=== PATIENT | female | born 1955 | race Native Hawaiian/Other Pacific Islander ===

== ENCOUNTER 2021-12-06 22:01 | Inpatient (IN) | payer SELFPAY ==
[~2021-12-06] VITALS: Ht 163 cm; Wt 112.1 kg
[2021-12-06] MEDS ORDERED: KETOROLAC 30 MG/ML VIAL IVP ONE (22:45)
[2021-12-06 23:31] LABS: BASOPHILS # (AUTO) 0.1 10^3/uL (0.0-0.1); BASOPHILS % (AUTO) 1 % (0-10); EOSINOPHILS # (AUTO) 0.4 10^3/uL (0.0-0.3); EOSINOPHILS % (AUTO) 4 % (0-10); HEMATOCRIT 44 % (35-52); HEMOGLOBIN 14.9 g/dL (11.5-16.0); LYMPHOCYTES # (AUTO) 3.1 10^3/uL (1.0-4.0); LYMPHOCYTES % (AUTO) 27 % (12-44); MEAN CORPUSCULAR HEMOGLOBIN 32 pg (25-34); MEAN CORPUSCULAR HGB CONC 34 g/dL (32-36); MEAN CORPUSCULAR VOLUME 95 fL (80-99); MEAN PLATELET VOLUME 9.7 fL (9.0-12.2); MONOCYTES # (AUTO) 0.5 10^3/uL (0.0-1.0); MONOCYTES % (AUTO) 4 % (0-12); NEUTROPHILS # (AUTO) 7.2 10^3/uL (1.8-7.8); NEUTROPHILS % (AUTO) 64 % (42-75); PLATELET COUNT 303 10^3/uL (130-400); WHITE BLOOD COUNT 11.2 10^3/uL (4.3-11.0)
[2021-12-06 23:48] LABS: ALBUMIN 3.5 GM/DL (3.2-4.5)
[2021-12-06 23:49] LABS: POTASSIUM 4.5 MMOL/L (3.6-5.0)
[2021-12-06 23:50] LABS: CALCIUM 9.3 MG/DL (8.5-10.1)
[2021-12-06 23:51] LABS: TOTAL PROTEIN 7.9 GM/DL (6.4-8.2)
[2021-12-06 23:52] LABS: BILIRUBIN,URINE NEGATIVE (NEGATIVE); CLARITY,URINE CLOUDY; COLOR,URINE YELLOW; GLUCOSE, URINE (UA) 1+ (NEGATIVE); KETONES,URINE NEGATIVE (NEGATIVE); LEUKOCYTE ESTERASE ,URINE TRACE (NEGATIVE); NITRITE,URINE NEGATIVE (NEGATIVE); PROTEIN,URINE 2+ (NEGATIVE)
[2021-12-06 23:53] LABS: BILIRUBIN,TOTAL 0.5 MG/DL (0.1-1.0)
[2021-12-06 23:55] LABS: CREATININE SERUM 0.86 MG/DL (0.60-1.30)
[2021-12-06 23:58] LABS: URIC ACID 6.7 MG/DL (2.6-7.2)
[2021-12-07 00:05] LABS: BACTERIA,URINE LARGE /HPF; WBC,URINE 0-2 /HPF
[2021-12-07] MEDS ORDERED: cefTRIAXone 1 GM PRE-MIX 50 ML IV STA (00:14)
[2021-12-07] MEDS ORDERED: HYDROcodone/APAP 5 MG/325 MG (LORTAB) TAB PO ONE (02:45)
--- NOTE | 2021-12-07 02:57 | ED General ---
General Chief Complaint: General Problems/Pain Stated Complaint: R SIDE WEAKNESS Nursing Triage Note: TO ED VIA [facility]. PT DOES NOT SPEAK [place]ET[place], FROM [facility]. DAUGHTER IN LAW WITH PT, BUT HER TRANSLATION IS VERY POOR. USE OF PERSONAL INJURY LEGAL ASSISTANT VIDEO CALL AND STILL VERY POOR TRANSLATION. PT DID CONVEY SHE HAS RIGHT SIDED PAIN FROM ARM TO DOWN RIGHT LEG "SINCE SHE CAME TO THE [facility]". DENIES HEALTH PROBLEMS AND RX MEDICATIONS. Source of Information: Patient, Family, Assembler Tester Exam Limitations: Language Barrier History of Present Illness Date Seen by Provider: Dec 06, 2021 Time Seen by Provider: 22:08 Initial Comments This is 66-year-old Iranian woman presents to the emergency room via EMS with primary complaints of pain on the right side including her right shoulder and right knee. History is obtained with the assistance of her oskhzdlr-xr-ajs and the language line paraprofessional interpreter. Patient has been primarily bedbound since before arriving to [facility] in February 2021. She does not walk and does not stand independently. More recently however she has not even been able to sit up because of pain in her right knee. Despite being in the [facility] for over 9 months, she has not yet established with a primary care provider. The status of her Medicare and Social Security number is showed at this time. Patient also complains of some lower back pain. She does not take any prescription medications. She denies any significant health problems other than joint disease. Allergies and Home Medications Allergies Coded Allergies: No Known Drug Allergies (Unverified , 12/06/21) Patient Home Medication List Home Medication List Reviewed: Yes Review of Systems Review of Systems Constitutional: no symptoms reported EENTM: no symptoms reported Respiratory: no symptoms reported Cardiovascular: no symptoms reported Gastrointestinal: no symptoms reported Genitourinary: see HPI : No Musculoskeletal: see HPI Skin: no symptoms reported Psychiatric/Neurological: No Symptoms Reported Hematologic/Lymphatic: No Symptoms Reported Immunological/Allergic: no symptoms reported Past Mtnbmgb-Kwqnlm-Lrbrfg Hx Patient Social History Tobacco Use?: No Smoking Status: Former Smoker Use of E-Cig and/or Vaping dev: No Substance use?: No Alcohol Use?: No Past Medical History Surgeries: No Respiratory: No Cardiac: No Neurological: No : No Reproductive Disorders: No Genitourinary: No Gastrointestinal: No Musculoskeletal: Yes (Degenerative joint disease, especially right knee and shoulder) HEENT: No Cancer: No Psychosocial: No Physical Exam Vital Signs Vital Signs - First Documented 12/06/21 22:01 Temp 36.1 Pulse 93 Resp 18 B/P (MAP) 127/102 (110) Pulse Ox 96 O2 Delivery Room Air Capillary Refill : Less Than 3 Seconds Height, Weight, BMI Height: '" Weight: lbs. oz. kg; BMI Method: General Appearance: WD/WN, Mild Distress, Obese HEENT: PERRL/EOMI, Normal ENT Inspection Neck: Normal Inspection Respiratory: Lungs Clear, Normal Breath Sounds, No Accessory Muscle Use Cardiovascular: Regular Rate, Rhythm, No Edema, No Murmur Gastrointestinal: Normal Bowel Sounds, Non Tender, Soft Extremity: Other (Tenderness of the right knee and right shoulder. Pain with attempts at range of motion. Range of motion severely restricted by stiff joint in the right knee) Neurologic/Psychiatric: Alert, Oriented x3, No Motor/Sensory Deficits, Normal Mood/Affect, drawer in stitch bonding machine II-XII Norm as Tested Skin: Normal Color, Warm/Dry Progress/Results/Core Measures Suspected Sepsis SIRS Temperature: Pulse: 93 Respiratory Rate: 93 Laboratory Tests 12/06/21 23:25: White Blood Count 11.2H Blood Pressure 127 /102 Mean: 110 Laboratory Tests 12/06/21 23:25: Creatinine 0.86, Platelet Count 303, Total Bilirubin 0.5 Results/Orders Lab Results Laboratory Tests Test 12/06/21 23:25 12/06/21 23:45 Range/Units White Blood Count 11.2 H 4.3-11.0 10^3/uL Red Blood Count 4.61 3.80-5.11 10^6/uL Hemoglobin 14.9 11.5-16.0 g/dL Hematocrit 44 35-52 % Mean Corpuscular Volume 95 80-99 fL Mean Corpuscular Hemoglobin 32 25-34 pg Mean Corpuscular Hemoglobin Concent 34 32-36 g/dL Red Cell Distribution Width 11.2 10.0-14.5 % Platelet Count 303 130-400 10^3/uL Mean Platelet Volume 9.7 9.0-12.2 fL Immature Granulocyte % (Auto) 0 % Neutrophils (%) (Auto) 64 42-75 % Lymphocytes (%) (Auto) 27 12-44 % Monocytes (%) (Auto) 4 0-12 % Eosinophils (%) (Auto) 4 0-10 % Basophils (%) (Auto) 1 0-10 % Neutrophils # (Auto) 7.2 1.8-7.8 10^3/uL Lymphocytes # (Auto) 3.1 1.0-4.0 10^3/uL Monocytes # (Auto) 0.5 0.0-1.0 10^3/uL Eosinophils # (Auto) 0.4 H 0.0-0.3 10^3/uL Basophils # (Auto) 0.1 0.0-0.1 10^3/uL Immature Granulocyte # (Auto) 0.0 0.0-0.1 10^3/uL Sodium Level 134 L 135-145 MMOL/L Potassium Level 4.5 3.6-5.0 MMOL/L Chloride Level 97 L 98-107 MMOL/L Carbon Dioxide Level 26 21-32 MMOL/L Anion Gap 11 5-14 MMOL/L Blood Urea Nitrogen 26 H 7-18 MG/DL Creatinine 0.86 0.60-1.30 MG/DL Estimat Glomerular Filtration Rate 74 BUN/Creatinine Ratio 30 Glucose Level 299 H 70-105 MG/DL Uric Acid 6.7 2.6-7.2 MG/DL Calcium Level 9.3 8.5-10.1 MG/DL Corrected Calcium 9.7 8.5-10.1 MG/DL Total Bilirubin 0.5 0.1-1.0 MG/DL Aspartate Amino Transf (AST/SGOT) 12 5-34 U/L Alanine Aminotransferase (ALT/SGPT) 8 0-55 U/L Alkaline Phosphatase 76 40-136 U/L C-Reactive Protein High Sensitivity 0.70 H 0.00-0.50 MG/DL Total Protein 7.9 6.4-8.2 GM/DL Albumin 3.5 3.2-4.5 GM/DL Lipase 15 8-78 U/L Urine Color YELLOW Urine Clarity CLOUDY Urine pH 6.0 5-9 Urine Specific [place] >=1.030 1.016-1.022 Urine Protein 2+ H NEGATIVE Urine Glucose (UA) 1+ H NEGATIVE Urine Ketones NEGATIVE NEGATIVE Urine Nitrite NEGATIVE NEGATIVE Urine Bilirubin NEGATIVE NEGATIVE Urine Urobilinogen 1.0 < = 1.0 MG/DL Urine Leukocyte Esterase TRACE H NEGATIVE Urine RBC (Auto) NEGATIVE NEGATIVE Urine RBC NONE /HPF Urine WBC 0-2 /HPF Urine Squamous Epithelial Cells 2-5 /HPF Urine Crystals NONE /LPF Urine Bacteria LARGE H /HPF Urine Casts NONE /LPF Urine Mucus NEGATIVE /LPF Urine Culture Indicated YES My Orders Orders - JESSICA CID MD Ed Iv/Invasive Line Start (12/06/21 22:08) Cbc With Automated Diff (12/06/21 22:08) Comprehensive Metabolic Panel (12/06/21 22:08) Hs C Reactive Protein (12/06/21 22:08) Lipase (12/06/21 22:08) Ua Culture If Indicated (12/06/21 22:08) Uric Acid (12/06/21 22:41) Ketorolac Injection (Toradol Injection) (12/06/21 22:45) Straight Cath For Spec.-Adult (12/06/21 23:46) Urine Culture (12/06/21 23:45) Ceftriaxone 1 Gm Pre-Mix (Rocephin 1 Gm (12/07/21 00:14) Knee, Right, 3 Views (12/07/21 01:26) Shoulder, Right, 2 Views (12/07/21 01:37) Hydrocodone/Apap 5/325 Tablet (Lortab 5 (12/07/21 02:45) Hemoglobin A1c (12/07/21 02:44) Medications Given in ED Current Medications Medications Dose Ordered Sig/Silvia Route Start Time Stop Time Status Last Admin Dose Admin Acetaminophen/ Hydrocodone Bitart 1 ea ONCE ONCE PO 12/07/21 02:45 12/07/21 02:46 DC 12/07/21 03:28 1 EA Ketorolac Tromethamine 15 mg ONCE ONCE IVP 12/06/21 22:45 12/06/21 22:46 DC 12/06/21 23:26 15 MG Vital Signs/I&O 12/06/21 12/06/21 22:01 22:01 Temp 36.1 Pulse 93 Resp 18 B/P (MAP) 127/102 (110) Pulse Ox 96 O2 Delivery Room Air Capillary Refill : Less Than 3 Seconds Blood Pressure Mean: 110 Progress Note : Time: 02:52 Progress Note Patient's combination of medical problems, chronic and worsening debility, and social circumstances make continuing her care purely as an outpatient impra ctical and unsafe. Patient is no longer able to sit for a significant length of time and therefore is not going to be able to transport to and from doctor's appointments. She also has an unknown Medicare and Social Security status. She is from the [facility] and is 66, and she should therefore have Medicare. However, the family is unaware of her status or her Social Security number. Receiving care will be more difficult until this information is known. Additionally, EMS felt her home living situation was not appropriate for her level of need. For example, they were under the impression there was one mattress in the home where 8 people are living. Patient was treated with Toradol which did provide her some temporary rest. Once she woke she expe rienced rebound pain. Hydrocodone is being provided. The language barrier is significant. We were able to perform the initial assessment with a Iranian paraprofessional interpreter. However, while reviewing the plan, a Iranian paraprofessional interpreter was not available after multiple attempts. Patient's kssucikm-zp-axj acted as paraprofessional interpreter. Given the lack of biomedical engineering technician, we will presume full CODE STATUS until this can be otherwise discussed with an paraprofessional interpreter. Patient was found to have urinary tract infection and was treated with Rocephin. She is also hyperglycemic and likely has diabetes. An A1c has been ordered. Patient was noted to have severe arthritis and calcifications of the right knee to which her pain could be attributed. Diagnostic Imaging Diagonstic Imaging: Xray Plain Films/CT/US/NM/MRI: knee Comments Knee x-ray viewed by me and report reviewed. See report below: NAME: GABINO ROSA [facility] REC#: [id number] PT STATUS: ADM IN : 1955 PHYSICIAN: JESSICA CID MD ADMIT DATE: 12/07/21 Signed Date of Exam:12/07/21 KNEE, RIGHT, 3 VIEWS INDICATION: Bed bound patient presents with right knee pain. COMPARISONS: None FINDINGS: 3 views of the right knee show severe degenerative joint disease. There is complete loss of joint space with qowy-ir-fthr. There is also erosion of the tibial plateau as well as the femoral condyles. Patellofemoral degenerative joint disease is also noted with some productive changes. No significant joint effusion seen. IMPRESSION: Severe degenerative joint disease of the right knee with productive changes as well as tricompartmental joint space narrowing. No significant joint effusion seen. Dictated by: Dictated on workstation # [id number] Dict: 12/07/210 Trans: 12/07/21[facility] [id number] Interpreted by: JANKI MENDOZA MD Electronically signed by: JANKI MENDOZA MD 12/07/21606 Diagonstic Imaging: Xray Plain Films/CT/US/NM/MRI: other (Right shoulder) Comments Right shoulder x-ray viewed by me and report reviewed. See report below: NAME: GABINO ROSA [facility] REC#: [id number] PT STATUS: ADM IN : 1955 PHYSICIAN: JESSICA CID MD ADMIT DATE: 12/07/21 Signed Date of Exam:12/07/21 SHOULDER, RIGHT, 2 VIEWS INDICATION: 66-year-old bedbound patient presents with right shoulder pain. COMPARISONS: None FINDINGS: 2 views of the right shoulder obtained using the portable technique showed degenerative changes with some secondary osteoarthritis. There is no evidence of acute fracture or acute subluxation present. The right glenohumeral joint is intact. There is a right AC joint arthropathy. IMPRESSION: Some mild right AC joint arthropathy as well as glenohumeral joint arthropathy but no evidence of acute fracture or subluxation seen. The glenohumeral joint is intact. Dictated by: Dictated on workstation # [id number] Dict: 12/07/215 Trans: 12/07/21[facility] [id number] Interpreted by: JANKI MENDOZA MD Electronically signed by: JANKI MENDOZA MD 12/07/21606 Departure Communication (Admissions) Time/Spoke to Admitting Phy: 02:45 Dr. Boudreaux Impression Primary Impression: Urinary tract infection Qualified Codes: N39.0 - Urinary tract infection, site not specified Additional Impressions: Hyperglycemia Debility Right knee pain Qualified Codes: M25.561 - Pain in right knee; G89.29 - Other chronic pain Right shoulder pain Qualified Codes: M25.511 - Pain in right shoulder; G89.29 - Other chronic pain Low back pain Qualified Codes: M54.50 - Low back pain, unspecified; G89.29 - Other chronic pain Disposition: ADMITTED INPATIENT Condition: Improved Admissions Decision to Admit Reason: Admit from ER (General) Decision to Admit/Date: Dec 07, 2021 Time/Decision to Admit Time: 02:45 Departure-Patient Inst. Referrals: NO,LOCAL PHYSICIAN (PCP/Family) Primary Care Physician JESSICA CID MD Dec 07, 2021 02:57
[2021-12-07] MEDS ORDERED: ONDANSETRON 4 MG/2 ML (SDV) Z0FRAN IV PRN (04:00)
[2021-12-07] MEDS ORDERED: fentaNYL INJ 100 MCG/2 ML AMP IV PRN (04:00)
[2021-12-07] MEDS ORDERED: HYDROcodone/APAP 5 MG/325 MG (LORTAB) TAB PO PRN (04:00)
[2021-12-07] MEDS ORDERED: CATHETER FLUSH 10 ML SYR IVP PRN (04:00)
[2021-12-07] MEDS ORDERED: KETOROLAC 15 MG/ML VIAL IV PRN (04:00)
[2021-12-07 04:14] VITALS: BP 135/87
[2021-12-07] MEDS ORDERED: CATHETER FLUSH 10 ML SYR IVP SCH (06:00)
--- NOTE | 2021-12-07 06:03 | Diagnostic Imaging Report ---
INDICATION: 66-year-old bedbound patient presents with right shoulder pain. COMPARISONS: None FINDINGS: 2 views of the right shoulder obtained using the portable technique showed degenerative changes with some secondary osteoarthritis. There is no evidence of acute fracture or acute subluxation present. The right glenohumeral joint is intact. There is a right AC joint arthropathy. IMPRESSION: Some mild right AC joint arthropathy as well as glenohumeral joint arthropathy but no evidence of acute fracture or subluxation seen. The glenohumeral joint is intact. Dictated by: Dictated on workstation # [id number]
--- NOTE | 2021-12-07 06:05 | Diagnostic Imaging Report ---
INDICATION: Bed bound patient presents with right knee pain. COMPARISONS: None FINDINGS: 3 views of the right knee show severe degenerative joint disease. There is complete loss of joint space with frca-kb-iaov. There is also erosion of the tibial plateau as well as the femoral condyles. Patellofemoral degenerative joint disease is also noted with some productive changes. No significant joint effusion seen. IMPRESSION: Severe degenerative joint disease of the right knee with productive changes as well as tricompartmental joint space narrowing. No significant joint effusion seen. Dictated by: Dictated on workstation # [id number]
[2021-12-07 08:13] VITALS: BP 129/72
--- NOTE | 2021-12-07 10:55 | Occupational Therapy Eval ---
OT Evaluation-General/PLF Medical Diagnosis Admission Date Dec 07, 2021 at 02:51 Medical Diagnosis: UTI Onset Date: Dec 07, 2021 Therapy Diagnosis Therapy Diagnosis: Dependent adls Precautions Precautions/Isolations: Fall Prevention, Standard Precautions Referral Physician: Kelly Chew Reason: Evaluation/Treatment Medical History Current History Chief complaint: pain on right side. Found to have UTI. X-ray reveals no evidence of fracture or subluxation on R shoulder or R knee. Per daughter in law, pt has been bedbound since February 2021 and prior to that, she was wheelchair bound. Pt is total care from family and wears diapers at bed level. Per chart, there is 1 mattress within the home where 8 people live. Social History Home: Single Level Current Living Status: Other Family ADL-Prior Level of Function SCALE: Activities may be completed with or without assistive devices. 3-Agozftirpm-qftctgq completes the activity by him/herself with no assistance from a helper. 5-Set-up or Clean-up Assistance-helper sets up or cleans up; patient completes activity. [place] assists only prior to or following the activity. 4-Supervision or Touching Assistance-helper provides verbal cues and/or touching/steadying and/or contact guard assistance as patient completes activity. Assistance may be provided throughout the activity or intermittently. 3-Partial/Moderate Assistance-helper does LESS THAN HALF the effort. [place] lifts, holds or supports trunk or limbs, but provides less than half the effort. 2-Substantial/Maximal Assistance-helper does MORE THAN HALF the effort. [place] lifts or holds trunk or limbs and provides more than half the effort. 2-Mpzxypcpu-pqqbys does ALL the effort. Patient does none of the effort to complete the activity. Or, the assistance of 2 or more helpers is required for the patient to complete the activity. If activity was not attempted, code reason: 7-Patient Refused. 9-Not Applicable-not attempted and the patient did not perform the activity before the current illness, exacerbation or injury. 10-Not Attempted due to Environmental Limitations-(lack of equipment, weather restraints, etc.). 88-Not Attempted due to Medical Conditions or Safety Concerns. Self Care: Dependent Functional Cognition: Dependent Drive Self: No OT Current Status Subjective Pt does not communicate but is able to follow very simple visual cues. Pt is from the [place] and does not speak french. Appearance Pt left sidelying on left, pillows placed for pressure relief. RN notified Mental Status/Objective Patient Orientation: Person, Unable to Assess Attachments: Means Catheter Current Upper Extremity ROM L shoulder AROM: ~100 degrees, full PROM R shoulder PROM: ~90 degrees (pain tolerance) Elbow-distally WNL Upper Extremity Strength RUE not tested secondary to pain LUE: 3-/5 grossly ADL-Treatment Upper Body Dressing (QC): 1 Lower Body Dressing (QC): 1 On/Off Footwear (QC): 1 Toileting Hygiene (QC): 1 Per family report, pt is dependent for all adls at baseline. She has been bed bound for over 9+ months and was w/c bound prior to that. Pt no longer sits on the side of the bed. Bilateral knee flexion contracture present. Max a to roll R/L. Pt positioned into sidelying on L. Pillows placed for pressure relief. No skilled OT services warranted at this time. RN notified. Education OT Patient Education: Correct positioning, Purpose of tx/functional activities, Safety issues, Transfer techniques Teaching Recipient: Patient, Family Teaching Methods: Discussion Response to Teaching: Unable to Return Demonstration OT Chcf Goals Chcf Goals 1=Demonstrate adherence to instructed precautions during ADL tasks. 2=Patient will verbalize/demonstrate understanding of assistive devices/modifications for ADL. 3=Patient will improve strength/tolerance for activity to enable patient to perform ADL's. OT Education/Plan Problem List/Assessment Assessment: No Skilled OT Needs ID'd Discharge Recommendations Plan/Recommendations: Discontinue OT Target Placement parts counterman care vs home with continued family assist Treatment Plan/Plan of Care Treatment,Training & Education: Yes Patient would benefit from OT for education, treatment and training to promote independence in ADL's, mobility, safety and/or upper extremity function for ADL's. Plan of Care: ADL Retraining, Functional Mobility Treatment Duration: Dec 07, 2021 Frequency: 1 time per week Estimated Hrs Per Day: .25 hour per day Rehab Potential: Poor Time/GCodes Start Time: 10:35 Stop Time: 10:47 Total Time Billed (hr/min): 12 Billed Treatment Time 1 visit Shelia Avila OT Dec 07, 2021 10:55
[2021-12-07] MEDS ORDERED: inSUlin ASPART (NovoLOG) 1 UNIT/0.01 ML (CHARGE PER UNIT) SC SCH (11:00)
--- NOTE | 2021-12-07 11:25 | Physical Therapy Evaluation ---
PT Evaluation-General Medical Diagnosis Admission Date Dec 07, 2021 at 02:51 Medical Diagnosis: UTI/immobility/hyperglycemia Onset Date: Dec 07, 2021 Therapy Diagnosis Therapy Diagnosis: debility Precautions Precautions/Isolations: Fall Prevention, Standard Precautions Referral Physician: Kelly Reason for Referral: Evaluation/Treatment Medical History Current History EMS secondary to right side pain Reviewed History: Yes Social History Home: Single Level Current Living Status: Other Family Prior Prior Level of Function SCALE: Activities may be completed with or without assistive devices. 4-Hevpvemqiy-ljqgkzu completes the activity by him/herself with no assistance from a helper. 5-Set-up or Clean-up Assistance-helper sets up or cleans up; patient completes activity. [place] assists only prior to or following the activity. 4-Supervision or Touching Assistance-helper provides verbal cues and/or touching/steadying and/or contact guard assistance as patient completes activity. Assistance may be provided throughout the activity or intermittently. 3-Partial/Moderate Assistance-helper does LESS THAN HALF the effort. [place] lifts, holds or supports trunk or limbs, but provides less than half the effort. 2-Substantial/Maximal Assistance-helper does MORE THAN HALF the effort. [place] lifts or holds trunk or limbs and provides more than half the effort. 9-Vllibndaw-qprqan does ALL the effort. Patient does none of the effort to complete the activity. Or, the assistance of 2 or more helpers is required for the patient to complete the activity. If activity was not attempted, code reason: 7-Patient Refused. 9-Not Applicable-not attempted and the patient did not perform the activity before the current illness, exacerbation or injury. 10-Not Attempted due to Environmental Limitations-(lack of equipment, weather restraints, etc.). 88-Not Attempted due to Medical Conditions or Safety Concerns. Bed Mobility: 1 Transfers (B,C,W/C): 9 Gait: 9 Stairs: 9 Wheelchair Mobility: 9 bed bound >9 months PT Evaluation-Current Subjective Family agrees to PT. ROM/Strength ROM Lower Extremities severe bilateral knee flexion contractures wind swept right Strength Lower Extremities NT Integumentary/Posture Bowel Incontinence: Yes Bladder Incontinence: Yes Neuromuscular (Tone, Coordination, Reflexes) severely diminished with all Sensory Vision: Unable to Assess Hearing: Unable to Assess Transfers Roll Left to Right (QC): 1 (x 2) Sit to Lying (QC): 9 Lying to Sitting/Side of Bed(Q: 9 Sit to Stand (QC): 9 Chair/Dvu-vu-Fytrg Xfer(QC): 9 Toilet Transfer (QC): 9 Car Transfer (QC): 9 patient repositioned to side lying left with pillow placement behind back and LE's Gait Does the Patient Walk?: No and Walking Goal NOT indicated Assessment/Needs Patient is currently at dependent PLOF with all gross motor skills, bed mobility, etc. No skilled PT indicated. Patient presents with right wind swept bilateral knee flexion contractures. Physician, RN and SW notified. Rehab Potential: Poor PT Plan Treatment/Plan Treatment Plan: Discontinue PT Treatment Duration: Dec 07, 2021 Frequency: 1 time per week Estimated Hrs Per Day: .25 hour per day Time/GCodes Time In: 1035 Time Out: 1047 Total Billed Treatment Time: 12 Total Billed Treatment 1 visit EVMod 12 min DANILO BLACK PT Dec 07, 2021 11:25
[2021-12-07] MEDS ORDERED: METF-397 PO (11:52)
[2021-12-07 12:03] VITALS: BP_SYST 117; BP_SYST 118; BP_DIAS 71; BP_DIAS 72
--- NOTE | 2021-12-07 16:04 | Discharge Summary ---
Discharge Summary Hospital Course Problems/Dx: (1) T2DM (type 2 diabetes mellitus) Status: Acute Qualifiers: (2) Debility Status: Acute (3) Asymptomatic bacteriuria Status: Acute (4) Morbid obesity Status: Acute Hospital Course Date of Admission: Dec 07, 2021 at 02:51 Admission Diagnosis : T2DM with hyperglycemia Family Physician/Provider: Jeny Yee Physician Date of Discharge: 12/07/21 Discharge Diagnosis: T2DM with hyperglycemia Hospital Course: Valentin Collins is a 66 year old [employer] [facility] female with no known past medical history who presented with weakness and joint pain. She does not speak [place]ag[place] and her daughter in law is present and provides interpretation. She moved from the [facility] in February 2021. She has not been able to walk since that time. She has progressively become more debilitated. She was initially able to sit in a wheelchair but is now unable to get out of bed at all. She was found to have newly diagnosed type 2 diabetes mellitus. She was started on Metformin. She also had elevated blood pressure readings but was not started on any antihypertensives at this time. She was found to have asymptomatic bacteriuria. Xrays showed degenerative joint disease. She does not have a social security number and does not have insurance. Her family says they will continue to provide care for her at home. She was discharged home in fair condition. She was scheduled to establish care with [facility]. Labs and Pending Lab Test: Laboratory Tests 12/06/21 23:25: White Blood Count 11.2H, Red Blood Count 4.61, Hemoglobin 14.9, Hematocrit 44, Mean Corpuscular Volume 95, Mean Corpuscular Hemoglobin 32, Mean Corpuscular Hemoglobin Concent 34, Red Cell Distribution Width 11.2, Platelet Count 303, Mean Platelet Volume 9.7, Immature Granulocyte % (Auto) 0, Neutrophils (%) (Auto) 64, Lymphocytes (%) (Auto) 27, Monocytes (%) (Auto) 4, Eosinophils (%) (Auto) 4, Basophils (%) (Auto) 1, Neutrophils # (Auto) 7.2, Lymphocytes # (Auto) 3.1, Monocytes # (Auto) 0.5, Eosinophils # (Auto) 0.4H, Basophils # (Auto) 0.1, Immature Granulocyte # (Auto) 0.0, Sodium Level 134L, Potassium Level 4.5, Chloride Level 97L, Carbon Dioxide Level 26, Anion Gap 11, Blood Urea Nitrogen 26H, Creatinine 0.86, Estimat Glomerular Filtration Rate 74, BUN/Creatinine Ratio 30, Glucose Level 299H, Mean Blood Glucose [Pending], Hemoglobin A1c [Pending], Uric Acid 6.7, Calcium Level 9.3, Corrected Calcium 9.7, Total Bilirubin 0.5, Aspartate Amino Transf (AST/SGOT) 12, Alanine Aminotransferase (ALT/SGPT) 8, Alkaline Phosphatase 76, C-Reactive Protein High Sensitivity 0.70H , Total Protein 7.9, Albumin 3.5, Lipase 15 12/06/21 23:45: Urine Color YELLOW, Urine Clarity CLOUDY, Urine pH 6.0, Urine Specific [place] >=1.030, Urine Protein 2+H, Urine Glucose (UA) 1+H, Urine Ketones NEGATIVE, Urine Nitrite NEGATIVE, Urine Bilirubin NEGATIVE, Urine Urobilinogen 1.0, Urine Leukocyte Esterase TRACEH, Urine RBC (Auto) NEGATIVE, Urine RBC NONE, Urine WBC 0-2, Urine Squamous Epithelial Cells 2-5, Urine Crystals NONE, Urine Bacteria LARGEH, Urine Casts NONE, Urine Mucus NEGATIVE, Urine Culture Indicated YES 12/07/21 05:27: Glucometer 275H 12/07/21 09:30: Glucometer 221H Home Meds Active Metformin HCl 500 Mg Tablet 500 Mg PO DAILY 30 Days Assessment/Pt Instructions See instructions Discharge Planning: <30 minutes discharge planning Discharge Instructions Discharge Diet: ADA Diet Activity as Tolerated: Yes Discharge Physical Examination Vital Signs Vital Signs Date Time Temp Pulse Resp B/P (MAP) Pulse Ox O2 Delivery O2 Flow Rate FiO2 12/07/21 14:43 12/07/21 12:03 36.1 72 19 99 Room Air General Appearance: No Apparent Distress, Obese Respiratory: Lungs Clear, No Respiratory Distress Cardiovascular: Regular Rate, Rhythm, No Murmur Gastrointestinal: Normal Bowel Sounds, Soft Extremity: Normal Inspection, No Pedal Edema Skin: Normal Color, Warm/Dry Neurologic/Psychiatric: Alert, Depressed Affect Allergies: Coded Allergies: No Known Drug Allergies (Unverified , 12/06/21) Copy Copies To 1: [facility] [place] Summary Date of Admission Dec 07, 2021 at 02:51 Date of Discharge Dec 07, 2021 at 14:25 Discharge Date: Dec 07, 2021 Discharge Time: 14:25 Admission Diagnosis Type 2 diabetes mellitus with hyperglycemia Discharge Diagnosis (1) T2DM (type 2 diabetes mellitus) Status: Acute Qualifiers: (2) Debility Status: Acute (3) Asymptomatic bacteriuria Status: Acute (4) Morbid obesity Status: Acute SHELDON GARCIA MD Dec 07, 2021 16:02
== END 2021-12-07 14:25 | disposition home or self-care (01) | DRG 638 ==
LOC: ER 22:05 → 4TH 12-07 02:51
PROVIDERS: ADMIT Internal Medicine; ATTEND Family Medicine
DX: E11.65 Type 2 diabetes mellitus with hyperglycemia (principal); Z68.41 Body mass index [BMI] 40.0-44.9, adult; N39.0 Urinary tract infection, site not specified; R53.81 Other malaise; R82.71 Bacteriuria; E66.01 Morbid (severe) obesity due to excess calories; Z87.891 Personal history of nicotine dependence; M17.11 Unilateral primary osteoarthritis, right knee; M19.011 Primary osteoarthritis, right shoulder; G89.29 Other chronic pain; M54.50 Low back pain, unspecified
CPT/HCPCS: 36415; 51701; 73030; 73562; 80053; 81000; 82947; 83036; 83690; 84550; 85025; 86141; 87088; 94760